=== PATIENT | male | born 1960 | race Asian ===

== ENCOUNTER 2023-06-27 15:31 | Emergency (ER) | payer SELFPAY ==
[2023-06-27] VITALS (20 sets, daily range): BP systolic 145–207; BP diastolic 38–143; PULSE 70–103; RESP 15–36; TEMP 36.5; O2SAT 94–98; BMI 27.4
--- NOTE | 2023-06-27 15:48 | PC.NURSE ---
Used a computer equine dentist for [place] to do the triage; pt has limited Pakistani. He recently quit smoking--within last two months.
--- NOTE | 2023-06-27 15:50 | DI.RAD.S_ITS ---
PROCEDURE: XR CHEST 1V INDICATIONS: Shortness of breath TECHNIQUE: One view of the chest was acquired. COMPARISON: None. FINDINGS: Surgical changes and devices: None. Lungs and pleura: Prominent. No pleural effusions or pneumothorax. Mediastinum: Mediastinal contours appear normal. Heart size is interstitial markings markedly enlarged. Bones and chest wall: No suspicious bony lesions. Overlying soft tissues appear unremarkable. IMPRESSION: Marked cardiomegaly. Mild prominence of the interstitial markings may represent edema, correlate for congestive heart failure. Pericardial effusion is also in the differential. Dictated by: Jim Reinoso M.D. on 06/27/2023 at 16:55 Approved by: Jim Reinoso M.D. on 06/27/2023 at 16:56
--- NOTE | 2023-06-27 16:06 | DI.ECHO.S_ITS ---
[facility]---------+ [facility] +---------+ : : [address] : : : : [id number] : : : : Phone: [phone]---------+ Echocardiogram Report + + :Name: COLLEEN DELA CRUZ Study Date: 06/28/2023 Height: 67 in : :[facility] ReadingLocation: Weight: 150 lb : : Gender: Male BSA: 1.8 m2 : :: 1960 Age: 63 yrs BP: 170/96 mmHg: :Reason For Study: SHORTNESS OF BREATH, CHF : :Ordering Physician: MEMO, : :TORRI Performed By: Jessenia Jain : :Referring: TORRI HAMPTON : + + Interpretation Summary The left ventricle is severely dilated. The ejection fraction is estimated to be 10-15%. There is akinesis of the inferior, lateral and inferoseptal laird. Grade III diastolic dysfunction. The left atrium is severely dilated. The right ventricle is normal in size and function. The right atrium is moderately dilated. There is severe mitral regurgitation. There is mild aortic regurgitation. There is mild to moderate tricuspid regurgitation. The right ventricular systolic pressure is estimated to be at least 43 mmHg based on an estimated right atrial pressure of 15 mm Hg. There is a trivial pericardial effusion noted. Procedure: A two-dimensional transthoracic echocardiogram with color flow and Doppler was performed. The study quality was technically adequate. There is no prior echocardiogram noted for this patient. The patient was in sinus bradycardia with heart rates between 45-68 bpm during the exam. The patient had occasional PVCs during the exam. Left Ventricle: The left ventricle is severely dilated. Left ventiruclar end diastolic volume index to BSA is 83.88ml/m2. A false chord is noted (normal variant). The ejection fraction is estimated to be 10-15%. There is akinesis of the inferior, lateral and inferoseptal laird. Diastolic parameters suggest a restrictive filling pattern consistent with probable significantly elevated filling pressures. Right Ventricle: The right ventricle is normal in size and function. Atria: The left atrium is severely dilated. The right atrium is moderately dilated. There is no Doppler evidence for an interatrial shunt. Mitral Valve: The mitral valve leaflets appear mildly thickened, but open well. There is severe mitral regurgitation. There are multiple regurgitant jets present. Aortic Valve: The aortic valve is trileaflet. The aortic valve is mildly calcified. There is no aortic valve stenosis. There is mild aortic regurgitation. Tricuspid Valve: Tricuspid leaflets are thickened. There is mild to moderate tricuspid regurgitation. The right ventricular systolic pressure is estimated to be at least 43 mmHg based on an estimated right atrial pressure of 15 mm Hg. Pulmonic Valve: The pulmonic valve leaflets are thin and pliable; valve motion is normal. There is trace pulmonic regurgitation. Great Vessels: The aortic root is normal size. The dimensions of the ascending aorta are normal. The IVC is dilated (diameter is greater than 2.1 cm) and it collapses less than 50% with a sniff. This suggests a high right atrial pressure of 15 mm Hg. Pericardium/ Pleura There is a trivial pericardial effusion noted. There is no pleural effusion. MMode/2D Measurements & Calculations LVIDd: 7.0 cm LVOT diam: 2.0 cm LVIDs: 6.5 cm Ao root diam: 3.5 cm FS: 6.6 % asc Aorta Diam: 3.5 cm EPSS: 2.3 cm IVSd: 1.1 cm LVPWd: 0.82 cm LV cleary. diameter/BSA (cm/m^2): 3.9 LV sys. diameter/BSA (cm/m^2): 3.7 LA A2 area: 25.2 cm2 RA long axis: 5.1 cm LA A4 area: 24.5 cm2 RA area: 19.6 cm2 LA length (vol): 6.5 cm RA vol: 63.5 ml LA vol: 81.4 ml RA : 35.5 ml/m2 LA vol index: 45.5 ml/m2 IVC diam: 2.3 cm RVD1 (basal): 3.4 cm RVD2 (mid): 2.3 cm TAPSE: 1.8 cm Doppler Measurements & Calculations Ao V2 max: 96.4 cm/sec LVOT Max Bertram: 57.9 cm/sec Ao V2 mean: 72.3 cm/sec LV V1 max P.3 mmHg Ao max P.7 mmHg LV V1 VTI: 8.6 cm Ao mean P.3 mmHg LUIS(I,D): 2.0 cm2 Ao V2 VTI: 13.5 cm LUIS(V,D): 1.9 cm2 sev ratio: 0.64 LUIS indexed to BSA (cm^2/m^2): 1.1 MV E max bertram: 88.8 cm/sec TR max bertram: 265.4 cm/sec MV A max bertram: 27.9 cm/sec TR max P.2 mmHg MV E/A: 3.2 PA V2 max: 73.2 cm/sec Med Peak E' Bertram: 3.0 cm/sec PA V2 mean: 51.3 cm/sec E/E' med: 29.3 PA mean P.1 mmHg Lat Peak E' Bertram: 5.8 cm/sec PA pr(Accel): 49.9 mmHg E/E' lat: 15.3 E/e' average: 22.3 MV dec time: 0.13 sec MR ERO: 0.13 cm2 MR PISA: 2.6 cm2 SV(LVOT): 27.4 ml MR flow rate: 79.1 cm3/sec MR PISA radius: 0.65 cm Reading Physician:04:26 PM
--- NOTE | 2023-06-27 16:08 | ED_ITS ---
HPI - SOB/Dyspnea <Candida Alas, - Last Filed: 06/28/23 18:35> General Chief Complaint: Shortness of Breath/Dyspnea Stated Complaint: trouble breathing/heart pain Time Seen by Provider: 06/27/23 15:53 Source: patient and other Mode of arrival: Ambulatory Limitations: language barrier (speaks Estonian used interperter) History of Present Illness HPI Narrative: 63-year-old male with no reported medical history presents with complaint of shortness of breath for the past 3 weeks which has been increasing over time. Patient states he started having some shortness of breath that is gotten worsened worse. He has had increasing swelling in his lower extremities that was mild but now much worse in his legs are very tight. He has had swelling in the past for his legs which has come and gone but never been this bad. He denies any chest pain or pressure. No syncope. No fevers or chills. No cold cough or congestion. He does describe orthopnea. He had nausea early in the week but no vomiting. He has had no diarrhea or constipation. Denies urinary symptoms. Patient states he does not take any daily medications, has not seen a physician in many years. He was noted to have a systolic ejection murmur on exam he states no one ever told him he had a murmur. No prior surgeries. No known drug allergies. Former smoker quit approximately 3 months ago would go through a pack cigarettes every 2 or 3 weeks. Occasional alcohol he drinks wine but not regularly. Does not use any recreational or IV drugs. States he has not appointment to establish with primary care next week on 06/30/[address] To. Related Data Previous Rx's Medication Instructions Recorded atorvastatin 80 mg tablet 80 mg PO DAILY #30 tabs 06/28/23 metoprolol succinate 25 mg 25 mg PO DAILY #30 tabs 06/28/23 tablet,extended release 24 hr aspirin 81 mg chewable tablet 81 mg PO DAILY #90 tabs 06/30/23 (Alin Chewable Low Dose Aspirin) furosemide 40 mg tablet 40 mg PO DAILY #60 tabs 06/30/23 lisinopril 20 mg tablet 10 mg (1/2 x 20 mg) PO DAILY #90 06/30/23 tabs metoprolol succinate 50 mg 25 mg (1/2 x 50 mg) PO DAILY #90 06/30/23 tablet,extended release 24 hr tabs Allergies Allergy/AdvReac Type Severity Reaction Status Date / Time No Known Drug Allergies Allergy Verified 06/27/23 15:50 Review of Systems <Candida Alas DO - Last Filed: 06/28/23 18:35> Review of Systems ROS Unobtainable: All systems reviewed & are unremarkable except as noted in HPI and below Patient History <Candida Alas DO - Last Filed: 06/28/23 18:35> Medical History (Updated 06/30/23 @ 09:35 by Dionna To MD) Aortic regurgitation Mitral regurgitation Uninsured HFrEF (heart failure with reduced ejection fraction) Right middle lobe pulmonary nodule Social History Smoking Status: Former smoker Smoking Status: Former smoker tobacco type: cigarettes alcohol intake frequency: holidays/special occasions only Alcohol type: wine Substance Use Type: does not use Exam <Candida Alas DO - Last Filed: 06/28/23 18:35> Narrative Exam Narrative: GENERAL: Alert and oriented x three, alert male in moderate distress. HEENT: Head normocephalic, atraumatic, EOMI, pupils reactive, face symmetric, moist mucous membranes NECK: Supple, full range of motion CARDIOVASCULAR: Tachycardic but Regular rate and rhythm with systolic ejection murmur 3/6 best heard at the left lateral sternum and posterior left thoracic region. No rub. Patient has 2+ edema bilateral lower extremities. RESPIRATORY: Breath sounds equal bilaterally, no wheezes rales or rhonchi. Mild tachypnea. No accessory muscle use. ABDOMEN: Soft, nontender. Normoactive bowel sounds all 4 quadrants. No guarding or rebound, rigidity, no mass : No CVA tenderness EXTREMITIES: Normal range of motion, no clubbing. Neurovascularly intact NEUROLOGICAL: Cranial nerves II through XII grossly intact. Moving all extremities SKIN: Warm, dry, no petechiae, no rashes or lesions. Initial Vital Signs Initial Vital Signs: Vital Signs Temperature 97.7 F 06/27/23 15:34 Pulse Rate 103 H 06/27/23 15:34 Respiratory Rate 22 06/27/23 15:34 Blood Pressure 145/98 H 06/27/23 15:34 Pulse Oximetry 97 06/27/23 15:34 Oxygen Delivery Method Room Air 06/27/23 15:34 <Jemal lFor DO - Last Filed: 07/01/23 18:14> Initial Vital Signs Initial Vital Signs: Vital Signs Temperature 97.7 F 06/27/23 15:34 Pulse Rate 103 H 06/27/23 15:34 Respiratory Rate 22 06/27/23 15:34 Blood Pressure 145/98 H 06/27/23 15:34 Pulse Oximetry 97 06/27/23 15:34 Oxygen Delivery Method Room Air 06/27/23 15:34 <Candida Mason MD - Last Filed: 06/28/23 09:14> Initial Vital Signs Initial Vital Signs: Vital Signs Temperature 97.7 F 06/27/23 15:34 Pulse Rate 103 H 06/27/23 15:34 Respiratory Rate 22 06/27/23 15:34 Blood Pressure 145/98 H 06/27/23 15:34 Pulse Oximetry 97 06/27/23 15:34 Oxygen Delivery Method Room Air 06/27/23 15:34 Course <Candida Alas DO - Last Filed: 06/28/23 18:35> Orders Ordered: Discontinued Medications Furosemide (Furosemide 40 Mg/4 Ml Vial) 40 mg IV NOW ONE Stop: 06/27/23 16:27 Last Admin: 06/27/23 16:35 Dose: 40 mg Documented By: MARLENE Furosemide (Furosemide 40 Mg/4 Ml Vial) 40 mg IV NOW ONE Stop: 06/28/23 00:09 Last Admin: 06/28/23 01:04 Dose: 40 mg Documented By: MCKINLEY Heparin Sodium (Porcine) (Heparin 5,000 Unit/Ml Vial) 4,100 unit 60 unit/kg (4100 unit) IV NOW ONE Stop: 06/27/23 17:00 Last Admin: 06/27/23 17:16 Dose: 4,100 unit Documented By: SPF Heparin Sodium/Dextrose (Heparin Drip) 25,000 unit in 500 mls @ 16.329 mls/hr IV CONT JAZMÍN; Protocol Last Titration: 06/28/23 09:30 Dose: Infused Documented By: MG Co-signed By: RB Titration: 06/28/23 09:30 Dose: 0 units/kg/hr, 0 mls/hr Documented By: MG Co-signed By: RB Titration: 06/28/23 00:30 Dose: 10 units/kg/hr, 13.608 mls/hr Documented By: MCKINLEY Co-signed By: DAKOTA Admin: 06/27/23 17:18 Dose: 12 units/kg/hr, 16.329 mls/hr Documented By: MARIANN Co-signed By: CONOR Nitroglycerin (Nitroglycerin Oint 1 Inch/Gm Oint...G.) 1 inch TOP NOW ONE Stop: 06/27/23 19:26 Last Admin: 06/27/23 20:03 Dose: 1 inch Documented By: MARLENE Vital Signs Vital signs: Vital Signs - 8 hr 06/28/23 01:30 06/28/23 02:00 06/28/23 02:30 Pulse Rate 78 55 L 71 Respiratory Rate 26 H 16 28 H Blood Pressure 197/99 H 171/115 H 175/96 H Pulse Oximetry 96 96 94 Oxygen Delivery Method Room Air Room Air Room Air 06/28/23 02:59 06/28/23 03:00 06/28/23 03:00 Pulse Rate 51 L 63 Respiratory Rate 13 26 H Blood Pressure 176/117 H Pulse Oximetry 96 94 Oxygen Delivery Method 06/28/23 03:01 06/28/23 03:01 06/28/23 03:30 Pulse Rate 59 L 58 L Respiratory Rate 21 26 H Blood Pressure 175/91 H Pulse Oximetry 94 98 Oxygen Delivery Method 06/28/23 03:30 06/28/23 04:00 06/28/23 04:30 Pulse Rate 76 62 Respiratory Rate 20 19 Blood Pressure 179/118 H Pulse Oximetry 91 Oxygen Delivery Method 06/28/23 05:00 06/28/23 05:00 06/28/23 05:00 Pulse Rate 55 L 51 L Respiratory Rate 18 18 Blood Pressure 201/106 H 201/106 H Pulse Oximetry 93 96 Oxygen Delivery Method Room Air 06/28/23 05:30 06/28/23 06:00 06/28/23 06:01 Pulse Rate 58 L 60 57 L Respiratory Rate 12 22 24 Blood Pressure Pulse Oximetry 95 92 97 Oxygen Delivery Method Room Air 06/28/23 06:01 06/28/23 07:00 06/28/23 07:00 Pulse Rate 58 L Respiratory Rate 24 Blood Pressure 170/96 H 168/107 H Pulse Oximetry 96 Oxygen Delivery Method 06/28/23 07:30 06/28/23 07:30 06/28/23 08:00 Pulse Rate 63 Respiratory Rate 21 Blood Pressure 186/99 H 155/99 H Pulse Oximetry 92 Oxygen Delivery Method 06/28/23 08:00 Pulse Rate 49 L Respiratory Rate 15 Blood Pressure Pulse Oximetry 96 Oxygen Delivery Method <Jemal Chacho DO - Last Filed: 07/01/23 18:14> Orders Ordered: Discontinued Medications Furosemide (Furosemide 40 Mg/4 Ml Vial) 40 mg IV NOW ONE Stop: 06/27/23 16:27 Last Admin: 06/27/23 16:35 Dose: 40 mg Documented By: MARLENE Furosemide (Furosemide 40 Mg/4 Ml Vial) 40 mg IV NOW ONE Stop: 06/28/23 00:09 Last Admin: 06/28/23 01:04 Dose: 40 mg Documented By: MCKINLEY Heparin Sodium (Porcine) (Heparin 5,000 Unit/Ml Vial) 4,100 unit 60 unit/kg (4100 unit) IV NOW ONE Stop: 06/27/23 17:00 Last Admin: 06/27/23 17:16 Dose: 4,100 unit Documented By: MARIANN Heparin Sodium/Dextrose (Heparin Drip) 25,000 unit in 500 mls @ 16.329 mls/hr IV CONT JAZMÍN; Protocol Last Titration: 06/28/23 09:30 Dose: Infused Documented By: MG Co-signed By: CONOR Titration: 06/28/23 09:30 Dose: 0 units/kg/hr, 0 mls/hr Documented By: MG Co-signed By: CONOR Titration: 06/28/23 00:30 Dose: 10 units/kg/hr, 13.608 mls/hr Documented By: MCKINLEY Co-signed By: DAKOTA Admin: 06/27/23 17:18 Dose: 12 units/kg/hr, 16.329 mls/hr Documented By: MARIANN Co-signed By: CONOR Nitroglycerin (Nitroglycerin Oint 1 Inch/Gm Oint...G.) 1 inch TOP NOW ONE Stop: 06/27/23 19:26 Last Admin: 06/27/23 20:03 Dose: 1 inch Documented By: MARLENE Vital Signs Vital signs: Vital Signs - 8 hr 06/28/23 01:30 06/28/23 02:00 06/28/23 02:30 Pulse Rate 78 55 L 71 Respiratory Rate 26 H 16 28 H Blood Pressure 197/99 H 171/115 H 175/96 H Pulse Oximetry 96 96 94 Oxygen Delivery Method Room Air Room Air Room Air 06/28/23 02:59 06/28/23 03:00 06/28/23 03:00 Pulse Rate 51 L 63 Respiratory Rate 13 26 H Blood Pressure 176/117 H Pulse Oximetry 96 94 Oxygen Delivery Method 06/28/23 03:01 06/28/23 03:01 06/28/23 03:30 Pulse Rate 59 L 58 L Respiratory Rate 21 26 H Blood Pressure 175/91 H Pulse Oximetry 94 98 Oxygen Delivery Method 06/28/23 03:30 06/28/23 04:00 06/28/23 04:30 Pulse Rate 76 62 Respiratory Rate 20 19 Blood Pressure 179/118 H Pulse Oximetry 91 Oxygen Delivery Method 06/28/23 05:00 06/28/23 05:00 06/28/23 05:00 Pulse Rate 55 L 51 L Respiratory Rate 18 18 Blood Pressure 201/106 H 201/106 H Pulse Oximetry 93 96 Oxygen Delivery Method Room Air 06/28/23 05:30 06/28/23 06:00 06/28/23 06:01 Pulse Rate 58 L 60 57 L Respiratory Rate 12 22 24 Blood Pressure Pulse Oximetry 95 92 97 Oxygen Delivery Method Room Air 06/28/23 06:01 06/28/23 07:00 06/28/23 07:00 Pulse Rate 58 L Respiratory Rate 24 Blood Pressure 170/96 H 168/107 H Pulse Oximetry 96 Oxygen Delivery Method 06/28/23 07:30 06/28/23 07:30 06/28/23 08:00 Pulse Rate 63 Respiratory Rate 21 Blood Pressure 186/99 H 155/99 H Pulse Oximetry 92 Oxygen Delivery Method 06/28/23 08:00 Pulse Rate 49 L Respiratory Rate 15 Blood Pressure Pulse Oximetry 96 Oxygen Delivery Method <Candida Mason MD - Last Filed: 06/28/23 09:14> Orders Ordered: Discontinued Medications Furosemide (Furosemide 40 Mg/4 Ml Vial) 40 mg IV NOW ONE Stop: 06/27/23 16:27 Last Admin: 06/27/23 16:35 Dose: 40 mg Documented By: MARLENE Furosemide (Furosemide 40 Mg/4 Ml Vial) 40 mg IV NOW ONE Stop: 06/28/23 00:09 Last Admin: 06/28/23 01:04 Dose: 40 mg Documented By: MCKINLEY Heparin Sodium (Porcine) (Heparin 5,000 Unit/Ml Vial) 4,100 unit 60 unit/kg (4100 unit) IV NOW ONE Stop: 06/27/23 17:00 Last Admin: 06/27/23 17:16 Dose: 4,100 unit Documented By: MARIANN Heparin Sodium/Dextrose (Heparin Drip) 25,000 unit in 500 mls @ 16.329 mls/hr IV CONT JAZMÍN; Protocol Last Titration: 06/28/23 09:30 Dose: Infused Documented By: MG Co-signed By: CONOR Titration: 06/28/23 09:30 Dose: 0 units/kg/hr, 0 mls/hr Documented By: MG Co-signed By: CONOR Titration: 06/28/23 00:30 Dose: 10 units/kg/hr, 13.608 mls/hr Documented By: MCKINLEY Co-signed By: DAKOTA Admin: 06/27/23 17:18 Dose: 12 units/kg/hr, 16.329 mls/hr Documented By: MARIANN Co-signed By: CONOR Nitroglycerin (Nitroglycerin Oint 1 Inch/Gm Oint...G.) 1 inch TOP NOW ONE Stop: 06/27/23 19:26 Last Admin: 06/27/23 20:03 Dose: 1 inch Documented By: MARLENE Vital Signs Vital signs: Vital Signs - 8 hr 06/28/23 01:30 06/28/23 02:00 06/28/23 02:30 Pulse Rate 78 55 L 71 Respiratory Rate 26 H 16 28 H Blood Pressure 197/99 H 171/115 H 175/96 H Pulse Oximetry 96 96 94 Oxygen Delivery Method Room Air Room Air Room Air 06/28/23 02:59 06/28/23 03:00 06/28/23 03:00 Pulse Rate 51 L 63 Respiratory Rate 13 26 H Blood Pressure 176/117 H Pulse Oximetry 96 94 Oxygen Delivery Method 06/28/23 03:01 06/28/23 03:01 06/28/23 03:30 Pulse Rate 59 L 58 L Respiratory Rate 21 26 H Blood Pressure 175/91 H Pulse Oximetry 94 98 Oxygen Delivery Method 06/28/23 03:30 06/28/23 04:00 06/28/23 04:30 Pulse Rate 76 62 Respiratory Rate 20 19 Blood Pressure 179/118 H Pulse Oximetry 91 Oxygen Delivery Method 06/28/23 05:00 06/28/23 05:00 06/28/23 05:00 Pulse Rate 55 L 51 L Respiratory Rate 18 18 Blood Pressure 201/106 H 201/106 H Pulse Oximetry 93 96 Oxygen Delivery Method Room Air 06/28/23 05:30 06/28/23 06:00 06/28/23 06:01 Pulse Rate 58 L 60 57 L Respiratory Rate 12 22 24 Blood Pressure Pulse Oximetry 95 92 97 Oxygen Delivery Method Room Air 06/28/23 06:01 06/28/23 07:00 06/28/23 07:00 Pulse Rate 58 L Respiratory Rate 24 Blood Pressure 170/96 H 168/107 H Pulse Oximetry 96 Oxygen Delivery Method 06/28/23 07:30 06/28/23 07:30 06/28/23 08:00 Pulse Rate 63 Respiratory Rate 21 Blood Pressure 186/99 H 155/99 H Pulse Oximetry 92 Oxygen Delivery Method 06/28/23 08:00 Pulse Rate 49 L Respiratory Rate 15 Blood Pressure Pulse Oximetry 96 Oxygen Delivery Method MDM - SOB/Dyspnea <Candida Alas, DO - Last Filed: 06/28/23 18:35> Lab Data 06/28/23 05:53 06/28/23 05:53 Labs: Lab Results 06/27/23 06/27/23 06/27/23 Range/Units 16:15 18:25 20:19 WBC 7.9 (4.5-11.0) X10^3/uL RBC 5.08 (4.5-5.9) X10^6/uL Hgb 16.5 (13.5-17.5) g/dL Hct 49.5 (41-53) % MCV 97.6 (80-100) fL MCH 32.6 (26-34) PG MCHC 33.4 (30-36) % RDW 14.6 (11.6-14.8) % Plt Count 220 (150-400) X10^3/uL Neut % (Auto) 73.1 (50-75) % Lymph % (Auto) 19.7 L (25-40) % Adams % (Auto) 6.0 (3-14) % Eos % (Auto) 0.5 L (2-4) % Baso % (Auto) 0.7 (0-2) % Neut # (Auto) 5800 (0846-5912) /uL Lymph # (Auto) 1600 (5541-3904) /uL Adams # (Auto) 500 (0-900) /uL Eos # (Auto) 0 (0-450) /uL Baso # (Auto) 100 (0-100) /uL PT 14.7 H (9.4-12.5) SECONDS INR 1.3 (0.9-1.3) APTT 29 (25.1-36.5) SECONDS D-Dimer 1201 H (<500) ng/ml Sodium 135 L (137-145) mmol/L Potassium 3.7 (3.4-5.1) mmol/L Chloride 105 (98-107) mmol/L Carbon Dioxide 23 (22-32) mmol/L BUN 25 H (9-20) mg/dL Creatinine 0.79 (0.66-1.25) mg/dL Estimated GFR > 60 (>60) mL/min BUN/Creatinine Ratio 31.6 H (6-22) Glucose 153 H (80-110) mg/dL Lactate 1.6 (0.7-2.1) mmol/L Calcium 9.3 (8.4-10.2) mg/dL Total Bilirubin 2.5 H (0.2-1.3) mg/dL AST 62 H (17-59) IU/L ALT 57 H (<50) IU/L Alkaline Phosphatase 89 (38-126) U/L Total Creatine Kinase (55-170) U/L Troponin I 0.245 H* 0.245 H* (0.01-0.034) ng/mL NT-Pro-B Natriuret Pep 2860 H (<125) pg/mL Total Protein 7.0 (6.3-8.2) g/dL Albumin 3.8 (3.5-5.0) g/dL Globulin 3.2 (1.7-4.1) g/dL Albumin/Globulin Ratio 1.2 (1.0-2.8) Urine RBC 30-100/hpf H (0-5/HPF) Urine WBC 0-1/hpf (0-5/HPF) Ur Squamous Epith Cells None seen (0-5/HPF) Urine Bacteria None seen (None) Ur Culture Indicated? Cult not indicated Vol Urine Centrifuged 10ml (spun) 06/27/23 06/27/23 06/27/23 Range/Units 21:40 23:00 23:18 WBC (4.5-11.0) X10^3/uL RBC (4.5-5.9) X10^6/uL Hgb (13.5-17.5) g/dL Hct (41-53) % MCV (80-100) fL MCH (26-34) PG MCHC (30-36) % RDW (11.6-14.8) % Plt Count (150-400) X10^3/uL Neut % (Auto) (50-75) % Lymph % (Auto) (25-40) % Adams % (Auto) (3-14) % Eos % (Auto) (2-4) % Baso % (Auto) (0-2) % Neut # (Auto) (8512-8089) /uL Lymph # (Auto) (2463-7825) /uL Adams # (Auto) (0-900) /uL Eos # (Auto) (0-450) /uL Baso # (Auto) (0-100) /uL PT (9.4-12.5) SECONDS INR (0.9-1.3) APTT 90 H* D (25.1-36.5) SECONDS D-Dimer (<500) ng/ml Sodium (137-145) mmol/L Potassium (3.4-5.1) mmol/L Chloride (98-107) mmol/L Carbon Dioxide (22-32) mmol/L BUN (9-20) mg/dL Creatinine (0.66-1.25) mg/dL Estimated GFR (>60) mL/min BUN/Creatinine Ratio (6-22) Glucose (80-110) mg/dL Lactate (0.7-2.1) mmol/L Calcium (8.4-10.2) mg/dL Total Bilirubin (0.2-1.3) mg/dL AST (17-59) IU/L ALT (<50) IU/L Alkaline Phosphatase (38-126) U/L Total Creatine Kinase 146 (55-170) U/L Troponin I 0.240 H* (0.01-0.034) ng/mL NT-Pro-B Natriuret Pep (<125) pg/mL Total Protein (6.3-8.2) g/dL Albumin (3.5-5.0) g/dL Globulin (1.7-4.1) g/dL Albumin/Globulin Ratio (1.0-2.8) Urine RBC 30-100/hpf H (0-5/HPF) Urine WBC None seen (0-5/HPF) Ur Squamous Epith Cells 0-1 /hpf (0-5/HPF) Urine Bacteria Occasional (0-1) (None) Ur Culture Indicated? Cult not indicated Vol Urine Centrifuged 10ml (spun) 06/28/23 Range/Units 05:53 WBC 5.0 (4.5-11.0) X10^3/uL RBC 5.04 (4.5-5.9) X10^6/uL Hgb 16.2 (13.5-17.5) g/dL Hct 49.1 (41-53) % MCV 97.3 (80-100) fL MCH 32.2 (26-34) PG MCHC 33.1 (30-36) % RDW 14.5 (11.6-14.8) % Plt Count 198 (150-400) X10^3/uL Neut % (Auto) 64.2 (50-75) % Lymph % (Auto) 25.2 (25-40) % Adams % (Auto) 8.5 (3-14) % Eos % (Auto) 0.9 L (2-4) % Baso % (Auto) 1.2 (0-2) % Neut # (Auto) 3200 (1954-9772) /uL Lymph # (Auto) 1300 (6598-6974) /uL Adams # (Auto) 400 (0-900) /uL Eos # (Auto) 0 (0-450) /uL Baso # (Auto) 100 (0-100) /uL PT (9.4-12.5) SECONDS INR (0.9-1.3) APTT 59 H D (25.1-36.5) SECONDS D-Dimer (<500) ng/ml Sodium 137 (137-145) mmol/L Potassium 2.8 L (3.4-5.1) mmol/L Chloride 101 (98-107) mmol/L Carbon Dioxide 29 (22-32) mmol/L BUN 18 (9-20) mg/dL Creatinine 0.73 (0.66-1.25) mg/dL Estimated GFR > 60 (>60) mL/min BUN/Creatinine Ratio 24.7 H (6-22) Glucose 105 (80-110) mg/dL Lactate (0.7-2.1) mmol/L Calcium 9.3 (8.4-10.2) mg/dL Total Bilirubin (0.2-1.3) mg/dL AST (17-59) IU/L ALT (<50) IU/L Alkaline Phosphatase (38-126) U/L Total Creatine Kinase 112 (55-170) U/L Troponin I 0.253 H* (0.01-0.034) ng/mL NT-Pro-B Natriuret Pep 2240 H (<125) pg/mL Total Protein (6.3-8.2) g/dL Albumin (3.5-5.0) g/dL Globulin (1.7-4.1) g/dL Albumin/Globulin Ratio (1.0-2.8) Urine RBC (0-5/HPF) Urine WBC (0-5/HPF) Ur Squamous Epith Cells (0-5/HPF) Urine Bacteria (None) Ur Culture Indicated? Vol Urine Centrifuged Urine Dip Bedside Urine Glucose Negative Bedside Urine Bilirubin - Negative Bedside Urine Ketone - Negative Urine Specific [place] 1.010 Bedside Urine Occult Blood +++ Bedside Urine pH 6.0 Bedside Urine Protein + 30 Bedside Urine Urobilinogen - Negative Bedside Urine Nitrite - Negative Bedside Urine Leukocytes - Negative Esterase ECG Data Attestation: I personally reviewed and interpreted this ECG as follows: Prior ECG tracings: not available for review Interpretation: Sinus tachycardia left atrial enlargement, left ventricular hypertrophy, patient has definite ST depression in lateral leads, Q-wave with bundle-branch block 2 3 and AVF. No prior for comparison. MDM Narrative Medical decision making narrative: 63-year-old male with no complaints of chest pain but has had shortness of breath with increasing swelling of his lower extremities for the past 3 weeks. Has what appears to be probably left bundle with ST depression on his EKG, no priors for comparison. Patient appears fluid overloaded he has a systolic ejection murmur heard best in the left lateral border and posteriorly and has occasional episodes of hypoxia down to 88 %. Plan for labs Chest x-ray shows cardiomegaly. Possible early CHF. Patient was given Lasix 40 mg IV placed on 2 L nasal cannula Labs show normal white count, hemoglobin and crit was platelets of 220. INR is 1.[address] angio was ordered. Sodium is 135 with a BUN 25 and electrolytes are appropriate with potassium of 3.2, creatinine normal at 0.79 lactate 1.6. Glucose is 153. Bilirubin is 2 point with a AST of 62 and ALT of 57. Troponin is 0.245. BNP is 2860. Suspect possible valvular dysfunction causing congestive heart failure and elevated troponin patient does not have any chest pain or pressure. EKG does have ST changes. Patient is quite hypertensive but would like to have CT angio results back before starting any medications for blood pressure. Patient started on heparin drip. Troponin is being repeated. Patient CT angio pending ECHO ordered but unavailable today. Patient signed out to Dr. Flor patient will likely necessitate transfer. Dr Flor: Received turned over. Review patient's history and physical exam. Performed my own independent exam. Talked with the patient. He has no chest pain. His troponins have remained stable over multiple hours. He remains on a heparin drip. Has diuresed. Blood pressure is improved with diuresis and nitroglycerin. Based on his presentation today I suspect that his symptoms are CHF related. He seems to think that his symptoms really started 3 weeks ago. I did discuss the case with Dr. Hogan on-call for cardiology who recommends patient be transferred to a facility that has cardiology capability because of the high likelihood of requiring intervention. Echocardiogram has been ordered however we are unable to do this overnight. Care turned over to day provider to follow-up and disposition. Care of patient is signed over to me by Dr. Flor at 0700 -no events reported overnight. Hemodynamically stable, he was provided a heart healthy breakfast tray. Patient at 8:30 a.m. informed the nurse that he wished to speak with me. Using [place]ian credit department manager service the patient stated that he did not want to be transferred due to financial concerns and wanted to leave the hospital and go home. I explained to the patient that finances can be assisted with as there are numerous financial assistance in erik programs at various hospitals to help with patients who do not have insurance. I explained that patient very very likely has congestive heart failure and heart disease and recommended transfer for cardiology consult and possible intervention. Patient stated that he understood the risks of leaving including worsening heart failure and heart attack and even , but he continued to state financial concerns as a reason he did not want to stay in the hospital and states that he would like to leave against medical advice. He states that he has a primary care appointment in 2 days and we will talk to his doctor then about further care. While patient is pending his primary care appointment he will be started on low-dose metoprolol, a short course of Lasix, a high-intensity statin, and daily baby aspirin. Using translation service patient was counseled on the extreme importance of following up with his primary doctor and heart doctor to avoid worsening his condition. Patient expressed understanding, he is alert, oriented, he understands the risks of leaving against medical advice. <Jemal Flor, DO - Last Filed: 07/01/23 18:14> Lab Data Attestation: I reviewed the patient's lab results. Labs: Lab Results 06/27/23 06/27/23 06/27/23 Range/Units 16:15 18:25 20:19 WBC 7.9 (4.5-11.0) X10^3/uL RBC 5.08 (4.5-5.9) X10^6/uL Hgb 16.5 (13.5-17.5) g/dL Hct 49.5 (41-53) % MCV 97.6 (80-100) fL MCH 32.6 (26-34) PG MCHC 33.4 (30-36) % RDW 14.6 (11.6-14.8) % Plt Count 220 (150-400) X10^3/uL Neut % (Auto) 73.1 (50-75) % Lymph % (Auto) 19.7 L (25-40) % Adams % (Auto) 6.0 (3-14) % Eos % (Auto) 0.5 L (2-4) % Baso % (Auto) 0.7 (0-2) % Neut # (Auto) 5800 (8065-2596) /uL Lymph # (Auto) 1600 (5913-1804) /uL Adams # (Auto) 500 (0-900) /uL Eos # (Auto) 0 (0-450) /uL Baso # (Auto) 100 (0-100) /uL PT 14.7 H (9.4-12.5) SECONDS INR 1.3 (0.9-1.3) APTT 29 (25.1-36.5) SECONDS D-Dimer 1201 H (<500) ng/ml Sodium 135 L (137-145) mmol/L Potassium 3.7 (3.4-5.1) mmol/L Chloride 105 (98-107) mmol/L Carbon Dioxide 23 (22-32) mmol/L BUN 25 H (9-20) mg/dL Creatinine 0.79 (0.66-1.25) mg/dL Estimated GFR > 60 (>60) mL/min BUN/Creatinine Ratio 31.6 H (6-22) Glucose 153 H (80-110) mg/dL Lactate 1.6 (0.7-2.1) mmol/L Calcium 9.3 (8.4-10.2) mg/dL Total Bilirubin 2.5 H (0.2-1.3) mg/dL AST 62 H (17-59) IU/L ALT 57 H (<50) IU/L Alkaline Phosphatase 89 (38-126) U/L Total Creatine Kinase (55-170) U/L Troponin I 0.245 H* 0.245 H* (0.01-0.034) ng/mL NT-Pro-B Natriuret Pep 2860 H (<125) pg/mL Total Protein 7.0 (6.3-8.2) g/dL Albumin 3.8 (3.5-5.0) g/dL Globulin 3.2 (1.7-4.1) g/dL Albumin/Globulin Ratio 1.2 (1.0-2.8) Urine RBC 30-100/hpf H (0-5/HPF) Urine WBC 0-1/hpf (0-5/HPF) Ur Squamous Epith Cells None seen (0-5/HPF) Urine Bacteria None seen (None) Ur Culture Indicated? Cult not indicated Vol Urine Centrifuged 10ml (spun) 06/27/23 06/27/23 06/27/23 Range/Units 21:40 23:00 23:18 WBC (4.5-11.0) X10^3/uL RBC (4.5-5.9) X10^6/uL Hgb (13.5-17.5) g/dL Hct (41-53) % MCV (80-100) fL MCH (26-34) PG MCHC (30-36) % RDW (11.6-14.8) % Plt Count (150-400) X10^3/uL Neut % (Auto) (50-75) % Lymph % (Auto) (25-40) % Adams % (Auto) (3-14) % Eos % (Auto) (2-4) % Baso % (Auto) (0-2) % Neut # (Auto) (2149-5450) /uL Lymph # (Auto) (3328-3134) /uL Adams # (Auto) (0-900) /uL Eos # (Auto) (0-450) /uL Baso # (Auto) (0-100) /uL PT (9.4-12.5) SECONDS INR (0.9-1.3) APTT 90 H* D (25.1-36.5) SECONDS D-Dimer (<500) ng/ml Sodium (137-145) mmol/L Potassium (3.4-5.1) mmol/L Chloride (98-107) mmol/L Carbon Dioxide (22-32) mmol/L BUN (9-20) mg/dL Creatinine (0.66-1.25) mg/dL Estimated GFR (>60) mL/min BUN/Creatinine Ratio (6-22) Glucose (80-110) mg/dL Lactate (0.7-2.1) mmol/L Calcium (8.4-10.2) mg/dL Total Bilirubin (0.2-1.3) mg/dL AST (17-59) IU/L ALT (<50) IU/L Alkaline Phosphatase (38-126) U/L Total Creatine Kinase 146 (55-170) U/L Troponin I 0.240 H* (0.01-0.034) ng/mL NT-Pro-B Natriuret Pep (<125) pg/mL Total Protein (6.3-8.2) g/dL Albumin (3.5-5.0) g/dL Globulin (1.7-4.1) g/dL Albumin/Globulin Ratio (1.0-2.8) Urine RBC 30-100/hpf H (0-5/HPF) Urine WBC None seen (0-5/HPF) Ur Squamous Epith Cells 0-1 /hpf (0-5/HPF) Urine Bacteria Occasional (0-1) (None) Ur Culture Indicated? Cult not indicated Vol Urine Centrifuged 10ml (spun) 06/28/23 Range/Units 05:53 WBC 5.0 (4.5-11.0) X10^3/uL RBC 5.04 (4.5-5.9) X10^6/uL Hgb 16.2 (13.5-17.5) g/dL Hct 49.1 (41-53) % MCV 97.3 (80-100) fL MCH 32.2 (26-34) PG MCHC 33.1 (30-36) % RDW 14.5 (11.6-14.8) % Plt Count 198 (150-400) X10^3/uL Neut % (Auto) 64.2 (50-75) % Lymph % (Auto) 25.2 (25-40) % Adams % (Auto) 8.5 (3-14) % Eos % (Auto) 0.9 L (2-4) % Baso % (Auto) 1.2 (0-2) % Neut # (Auto) 3200 (7143-8525) /uL Lymph # (Auto) 1300 (9043-7447) /uL Adams # (Auto) 400 (0-900) /uL Eos # (Auto) 0 (0-450) /uL Baso # (Auto) 100 (0-100) /uL PT (9.4-12.5) SECONDS INR (0.9-1.3) APTT 59 H D (25.1-36.5) SECONDS D-Dimer (<500) ng/ml Sodium 137 (137-145) mmol/L Potassium 2.8 L (3.4-5.1) mmol/L Chloride 101 (98-107) mmol/L Carbon Dioxide 29 (22-32) mmol/L BUN 18 (9-20) mg/dL Creatinine 0.73 (0.66-1.25) mg/dL Estimated GFR > 60 (>60) mL/min BUN/Creatinine Ratio 24.7 H (6-22) Glucose 105 (80-110) mg/dL Lactate (0.7-2.1) mmol/L Calcium 9.3 (8.4-10.2) mg/dL Total Bilirubin (0.2-1.3) mg/dL AST (17-59) IU/L ALT (<50) IU/L Alkaline Phosphatase (38-126) U/L Total Creatine Kinase 112 (55-170) U/L Troponin I 0.253 H* (0.01-0.034) ng/mL NT-Pro-B Natriuret Pep 2240 H (<125) pg/mL Total Protein (6.3-8.2) g/dL Albumin (3.5-5.0) g/dL Globulin (1.7-4.1) g/dL Albumin/Globulin Ratio (1.0-2.8) Urine RBC (0-5/HPF) Urine WBC (0-5/HPF) Ur Squamous Epith Cells (0-5/HPF) Urine Bacteria (None) Ur Culture Indicated? Vol Urine Centrifuged Urine Dip Bedside Urine Glucose Negative Bedside Urine Bilirubin - Negative Bedside Urine Ketone - Negative Urine Specific [place] 1.010 Bedside Urine Occult Blood +++ Bedside Urine pH 6.0 Bedside Urine Protein + 30 Bedside Urine Urobilinogen - Negative Bedside Urine Nitrite - Negative Bedside Urine Leukocytes - Negative Esterase MDM Narrative Medical decision making narrative: 63-year-old male with no complaints of chest pain but has had shortness of breath with increasing swelling of his lower extremities for the past 3 weeks. Has what appears to be probably left bundle with ST depression on his EKG, no priors for comparison. Patient appears fluid overloaded he has a systolic ejection murmur heard best in the left lateral border and posteriorly and has occasional episodes of hypoxia down to 88 %. Plan for labs Chest x-ray shows cardiomegaly. Possible early CHF. Patient was given Lasix 40 mg IV placed on 2 L nasal cannula Labs show normal white count, hemoglobin and crit was platelets of 220. INR is 1.[address] angio was ordered. Sodium is 135 with a BUN 25 and electrolytes are appropriate with potassium of 3.2, creatinine normal at 0.79 lactate 1.6. Glucose is 153. Bilirubin is 2 point with a AST of 62 and ALT of 57. Troponin is 0.245. BNP is 2860. Suspect possible valvular dysfunction causing congestive heart failure and elevated troponin patient does not have any chest pain or pressure. EKG does have ST changes. Patient is quite hypertensive but would like to have CT angio results back before starting any medications for blood pressure. Patient started on heparin drip. Troponin is being repeated. Patient CT angio pending Patient signed out to Dr. Flor patient will likely necessitate transfer. Dr Flor: Received turned over. Review patient's history and physical exam. Performed my own independent exam. Talked with the patient. He has no chest pain. His troponins have remained stable over multiple hours. He remains on a heparin drip. Has diuresed. Blood pressure is improved with diuresis and nitroglycerin. Based on his presentation today I suspect that his symptoms are CHF related. He seems to think that his symptoms really started 3 weeks ago. I did discuss the case with Dr. Hogan on-call for cardiology who recommends patient be transferred to a facility that has cardiology capability because of the high likelihood of requiring intervention. Echocardiogram has been ordered however we are unable to do this overnight. Care turned over to day provider to follow-up and disposition. <Candida Mason MD - Last Filed: 06/28/23 09:14> Lab Data Labs: Lab Results 06/27/23 06/27/23 06/27/23 Range/Units 16:15 18:25 20:19 WBC 7.9 (4.5-11.0) X10^3/uL RBC 5.08 (4.5-5.9) X10^6/uL Hgb 16.5 (13.5-17.5) g/dL Hct 49.5 (41-53) % MCV 97.6 (80-100) fL MCH 32.6 (26-34) PG MCHC 33.4 (30-36) % RDW 14.6 (11.6-14.8) % Plt Count 220 (150-400) X10^3/uL Neut % (Auto) 73.1 (50-75) % Lymph % (Auto) 19.7 L (25-40) % Adams % (Auto) 6.0 (3-14) % Eos % (Auto) 0.5 L (2-4) % Baso % (Auto) 0.7 (0-2) % Neut # (Auto) 5800 (9951-2925) /uL Lymph # (Auto) 1600 (3229-7485) /uL Adams # (Auto) 500 (0-900) /uL Eos # (Auto) 0 (0-450) /uL Baso # (Auto) 100 (0-100) /uL PT 14.7 H (9.4-12.5) SECONDS INR 1.3 (0.9-1.3) APTT 29 (25.1-36.5) SECONDS D-Dimer 1201 H (<500) ng/ml Sodium 135 L (137-145) mmol/L Potassium 3.7 (3.4-5.1) mmol/L Chloride 105 (98-107) mmol/L Carbon Dioxide 23 (22-32) mmol/L BUN 25 H (9-20) mg/dL Creatinine 0.79 (0.66-1.25) mg/dL Estimated GFR > 60 (>60) mL/min BUN/Creatinine Ratio 31.6 H (6-22) Glucose 153 H (80-110) mg/dL Lactate 1.6 (0.7-2.1) mmol/L Calcium 9.3 (8.4-10.2) mg/dL Total Bilirubin 2.5 H (0.2-1.3) mg/dL AST 62 H (17-59) IU/L ALT 57 H (<50) IU/L Alkaline Phosphatase 89 (38-126) U/L Total Creatine Kinase (55-170) U/L Troponin I 0.245 H* 0.245 H* (0.01-0.034) ng/mL NT-Pro-B Natriuret Pep 2860 H (<125) pg/mL Total Protein 7.0 (6.3-8.2) g/dL Albumin 3.8 (3.5-5.0) g/dL Globulin 3.2 (1.7-4.1) g/dL Albumin/Globulin Ratio 1.2 (1.0-2.8) Urine RBC 30-100/hpf H (0-5/HPF) Urine WBC 0-1/hpf (0-5/HPF) Ur Squamous Epith Cells None seen (0-5/HPF) Urine Bacteria None seen (None) Ur Culture Indicated? Cult not indicated Vol Urine Centrifuged 10ml (spun) 06/27/23 06/27/23 06/27/23 Range/Units 21:40 23:00 23:18 WBC (4.5-11.0) X10^3/uL RBC (4.5-5.9) X10^6/uL Hgb (13.5-17.5) g/dL Hct (41-53) % MCV (80-100) fL MCH (26-34) PG MCHC (30-36) % RDW (11.6-14.8) % Plt Count (150-400) X10^3/uL Neut % (Auto) (50-75) % Lymph % (Auto) (25-40) % Adams % (Auto) (3-14) % Eos % (Auto) (2-4) % Baso % (Auto) (0-2) % Neut # (Auto) (0468-4253) /uL Lymph # (Auto) (7754-3477) /uL Adams # (Auto) (0-900) /uL Eos # (Auto) (0-450) /uL Baso # (Auto) (0-100) /uL PT (9.4-12.5) SECONDS INR (0.9-1.3) APTT 90 H* D (25.1-36.5) SECONDS D-Dimer (<500) ng/ml Sodium (137-145) mmol/L Potassium (3.4-5.1) mmol/L Chloride (98-107) mmol/L Carbon Dioxide (22-32) mmol/L BUN (9-20) mg/dL Creatinine (0.66-1.25) mg/dL Estimated GFR (>60) mL/min BUN/Creatinine Ratio (6-22) Glucose (80-110) mg/dL Lactate (0.7-2.1) mmol/L Calcium (8.4-10.2) mg/dL Total Bilirubin (0.2-1.3) mg/dL AST (17-59) IU/L ALT (<50) IU/L Alkaline Phosphatase (38-126) U/L Total Creatine Kinase 146 (55-170) U/L Troponin I 0.240 H* (0.01-0.034) ng/mL NT-Pro-B Natriuret Pep (<125) pg/mL Total Protein (6.3-8.2) g/dL Albumin (3.5-5.0) g/dL Globulin (1.7-4.1) g/dL Albumin/Globulin Ratio (1.0-2.8) Urine RBC 30-100/hpf H (0-5/HPF) Urine WBC None seen (0-5/HPF) Ur Squamous Epith Cells 0-1 /hpf (0-5/HPF) Urine Bacteria Occasional (0-1) (None) Ur Culture Indicated? Cult not indicated Vol Urine Centrifuged 10ml (spun) 06/28/23 Range/Units 05:53 WBC 5.0 (4.5-11.0) X10^3/uL RBC 5.04 (4.5-5.9) X10^6/uL Hgb 16.2 (13.5-17.5) g/dL Hct 49.1 (41-53) % MCV 97.3 (80-100) fL MCH 32.2 (26-34) PG MCHC 33.1 (30-36) % RDW 14.5 (11.6-14.8) % Plt Count 198 (150-400) X10^3/uL Neut % (Auto) 64.2 (50-75) % Lymph % (Auto) 25.2 (25-40) % Adams % (Auto) 8.5 (3-14) % Eos % (Auto) 0.9 L (2-4) % Baso % (Auto) 1.2 (0-2) % Neut # (Auto) 3200 (4305-6947) /uL Lymph # (Auto) 1300 (9329-2423) /uL Adams # (Auto) 400 (0-900) /uL Eos # (Auto) 0 (0-450) /uL Baso # (Auto) 100 (0-100) /uL PT (9.4-12.5) SECONDS INR (0.9-1.3) APTT 59 H D (25.1-36.5) SECONDS D-Dimer (<500) ng/ml Sodium 137 (137-145) mmol/L Potassium 2.8 L (3.4-5.1) mmol/L Chloride 101 (98-107) mmol/L Carbon Dioxide 29 (22-32) mmol/L BUN 18 (9-20) mg/dL Creatinine 0.73 (0.66-1.25) mg/dL Estimated GFR > 60 (>60) mL/min BUN/Creatinine Ratio 24.7 H (6-22) Glucose 105 (80-110) mg/dL Lactate (0.7-2.1) mmol/L Calcium 9.3 (8.4-10.2) mg/dL Total Bilirubin (0.2-1.3) mg/dL AST (17-59) IU/L ALT (<50) IU/L Alkaline Phosphatase (38-126) U/L Total Creatine Kinase 112 (55-170) U/L Troponin I 0.253 H* (0.01-0.034) ng/mL NT-Pro-B Natriuret Pep 2240 H (<125) pg/mL Total Protein (6.3-8.2) g/dL Albumin (3.5-5.0) g/dL Globulin (1.7-4.1) g/dL Albumin/Globulin Ratio (1.0-2.8) Urine RBC (0-5/HPF) Urine WBC (0-5/HPF) Ur Squamous Epith Cells (0-5/HPF) Urine Bacteria (None) Ur Culture Indicated? Vol Urine Centrifuged Urine Dip Bedside Urine Glucose Negative Bedside Urine Bilirubin - Negative Bedside Urine Ketone - Negative Urine Specific [place] 1.010 Bedside Urine Occult Blood +++ Bedside Urine pH 6.0 Bedside Urine Protein + 30 Bedside Urine Urobilinogen - Negative Bedside Urine Nitrite - Negative Bedside Urine Leukocytes - Negative Esterase MDM Narrative Medical decision making narrative: 63-year-old male with no complaints of chest pain but has had shortness of breath with increasing swelling of his lower extremities for the past 3 weeks. Has what appears to be probably left bundle with ST depression on his EKG, no priors for comparison. Patient appears fluid overloaded he has a systolic ejection murmur heard best in the left lateral border and posteriorly and has occasional episodes of hypoxia down to 88 %. Plan for labs Chest x-ray shows cardiomegaly. Possible early CHF. Patient was given Lasix 40 mg IV placed on 2 L nasal cannula Labs show normal white count, hemoglobin and crit was platelets of 220. INR is 1.[address] angio was ordered. Sodium is 135 with a BUN 25 and electrolytes are appropriate with potassium of 3.2, creatinine normal at 0.79 lactate 1.6. Glucose is 153. Bilirubin is 2 point with a AST of 62 and ALT of 57. Troponin is 0.245. BNP is 2860. Suspect possible valvular dysfunction causing congestive heart failure and elevated troponin patient does not have any chest pain or pressure. EKG does have ST changes. Patient is quite hypertensive but would like to have CT angio results back before starting any medications for blood pressure. Patient started on heparin drip. Troponin is being repeated. Patient CT angio pending Patient signed out to Dr. Flor patient will likely necessitate transfer. Dr Flor: Received turned over. Review patient's history and physical exam. Performed my own independent exam. Talked with the patient. He has no chest pain. His troponins have remained stable over multiple hours. He remains on a heparin drip. Has diuresed. Blood pressure is improved with diuresis and nitroglycerin. Based on his presentation today I suspect that his symptoms are CHF related. He seems to think that his symptoms really started 3 weeks ago. I did discuss the case with Dr. Hogan on-call for cardiology who recommends patient be transferred to a facility that has cardiology capability because of the high likelihood of requiring intervention. Echocardiogram has been ordered however we are unable to do this overnight. Care turned over to day provider to follow-up and disposition. Care of patient is signed over to me by Dr. Flor at 0700 -no events reported overnight. Hemodynamically stable, he was provided a heart healthy breakfast tray. Patient at 8:30 a.m. informed the nurse that he wished to speak with me. Using [place] credit department manager service the patient stated that he did not want to be transferred due to financial concerns and wanted to leave the hospital and go home. I explained to the patient that finances can be assisted with as there are numerous financial assistance in erik programs at various hospitals to help with patients who do not have insurance. I explained that patient very very likely has congestive heart failure and heart disease and recommended transfer for cardiology consult and possible intervention. Patient stated that he understood the risks of leaving including worsening heart failure and heart attack and even , but he continued to state financial concerns as a reason he did not want to stay in the hospital and states that he would like to leave against medical advice. He states that he has a primary care appointment in 2 days and we will talk to his doctor then about further care. While patient is pending his primary care appointment he will be started on low-dose metoprolol, a short course of Lasix, a high-intensity statin, and daily baby aspirin. Using translation service patient was counseled on the extreme importance of following up with his primary doctor and heart doctor to avoid worsening his condition. Patient expressed understanding, he is alert, oriented, he understands the risks of leaving against medical advice. Discharge Plan Departure Patient Disposition: Left Against Medical Advice Clinical Impression: Congestive heart disease, Pulmonary nodule, Left against medical advice Coronary artery disease Qualifiers: Coronary Disease-Associated Artery/Lesion type: [place] artery [place] vs. transplanted heart: [place] heart Associated angina: with unspecified form of angina Qualified Code(s): I25.119 - Atherosclerotic heart disease of [place] coronary artery with unspecified angina pectoris Instructions: DI for Heart Failure Activity Restrictions/Additional Instructions: It is extremely important that you take all of your medications. Please come back if you do not feel better. Please see a heart doctor (Dr. Pope) Prescriptions: New atorvastatin 80 mg tablet 80 mg PO DAILY Qty: 30 0RF metoprolol succinate 25 mg tablet extended release 24 hr 25 mg PO DAILY Qty: 30 0RF No Action furosemide 40 mg tablet 40 mg PO DAILY Qty: 60 0RF Rx Instructions: Take as needed for swelling/shortness of breath. Take 1 tab daily for 5 days aspirin [Alin Chewable Aspirin] 81 mg tablet,chewable 81 mg PO DAILY Qty: 90 0RF metoprolol succinate 50 mg tablet extended release 24 hr 25 mg PO DAILY Qty: 90 0RF lisinopril 20 mg tablet 10 mg PO DAILY Qty: 90 0RF Referrals: Emmanuelle Pope DO [Physician] - Stand Alone Forms: Patient Portal/API, Against Medical Advice
--- NOTE | 2023-06-27 16:10 | PC.NURSE ---
Pt's friend Troy is going home for now and states to call him again when BJ (patient) needs a ride. Pt sitting up in bed.
[2023-06-27 16:22] LABS: Add Manual Diff / Slide Review NO; Basophils Absolute Auto 100 /uL (0-100); Basophils Percent Auto 0.7 % (0-2); Eosinophils Absolute Auto 0 /uL (0-450); Eosinophils Percent Auto 0.5 % (2-4); Hematocrit 49.5 % (41-53); Hemoglobin 16.5 g/dL (13.5-17.5); Lymphocytes Absolute Auto 1600 /uL (1100-4500); Lymphocytes Percent Auto 19.7 % (25-40); Mean Corpuscular HGB Conc 33.4 % (30-36); Mean Corpuscular Hemoglobin 32.6 PG (26-34); Mean Corpuscular Volume 97.6 fL (80-100); Monocytes Absolute Auto 500 /uL (0-900); Neutrophils Absolute Auto 5800 /uL (1500-7000); Neutrophils Percent Auto 73.1 % (50-75); Platelet Count 220 X10^3/uL (150-400); Red Blood Cell Count 5.08 X10^6/uL (4.5-5.9); Red Cell Distribution Width 14.6 % (11.6-14.8); White Blood Cell Count 7.9 X10^3/uL (4.5-11.0)
[2023-06-27 16:33] LABS: D Dimer 1201 ng/ml (<500)
[2023-06-27 16:35] LABS: Lactate (Lactic Acid) 1.6 mmol/L (0.7-2.1)
[2023-06-27] MEDS: FUROSEMIDE 40 MG/4 ML VIAL IV (16:35)
[2023-06-27 16:37] LABS: Alanine Aminotransferase 57 IU/L (<50); Albumin 3.8 g/dL (3.5-5.0); Albumin Globulin Ratio 1.2 (1.0-2.8); Alkaline Phosphatase 89 U/L (38-126); Aspartate Aminotransferase 62 IU/L (17-59); BUN Creatinine Ratio 31.6 (6-22); Bilirubin Total 2.5 mg/dL (0.2-1.3); Blood Urea Nitrogen 25 mg/dL (9-20); Calcium 9.3 mg/dL (8.4-10.2); Carbon Dioxide 23 mmol/L (22-32); Chloride 105 mmol/L (98-107); Estimated Glomerular Filt Rate > 60 mL/min (>60); Globulin 3.2 g/dL (1.7-4.1); Glucose 153 mg/dL (80-110); HEMOLYSIS 48 (0-50); Potassium 3.7 mmol/L (3.4-5.1); Sodium 135 mmol/L (137-145)
[2023-06-27 16:39] LABS: INR 1.3 (0.9-1.3); Prothrombin Time 14.7 SECONDS (9.4-12.5)
[2023-06-27 16:48] LABS: NT-proBNP (BNP-Adult 18+) 2860 pg/mL (<125)
[2023-06-27 16:49] LABS: PTT Partial Thromboplastin Tim 29 SECONDS (25.1-36.5)
--- NOTE | 2023-06-27 16:50 | PC.NURSE ---
Pt reports having SOB for the past 3 weeks and increased shortness of breath the past 7 days. He denies chest pain, dizziness or lightheaded. Pt reports feeling like his mouth is dry and having nausea 3 days ago with no emesis. Pt denies nausea currently. He has been taking advil PM to help get to sleep at night, having difficulty laying flat.
[2023-06-27 16:58] LABS: Troponin I 0.245 ng/mL (0.01-0.034)
--- NOTE | 2023-06-27 16:59 | DI.CT.S_ITS ---
PROCEDURE: CT ANGIO CHEST PE PROTOCOL INDICATIONS: shortness of breath, heart failure, elevated dimer. TECHNIQUE: After the administration of intravenous contrast, 2 mm thick sections acquired from the pulmonary apices to the posterior costophrenic angles. 3-dimensional maximum intensity projection (MIP) coronal and sagittal reformats were then acquired through the thorax. For radiation dose reduction, the following was used: automated exposure control, adjustment of mA and/or kV according to patient size. COMPARISON: None. FINDINGS: Image quality: Diagnostic. Pulmonary arteries: Pulmonary arteries are normal in size, and demonstrate no intraluminal filling defects to suggest central pulmonary embolism. Lower Neck: No enlarged lymph nodes. Thyroid: No thyroid nodules which require sonographic follow up, per consensus guidelines. Axillae: No enlarged lymph nodes. Chest Wall: Unremarkable. Bones: Unremarkable. Lungs and Pleura: No pneumothorax or pleural effusions. 8-9 mm solid nodule in the medial right middle lobe (series 5, image 210). Mild bronchial thickening and smooth interstitial thickening. Trace left effusion and small right effusion. Heart: Heart size is enlarged. No pericardial effusion. Marked coronary calcifications for age. Thoracic Vessels: No aortic aneurysm. Mediastinum and Ernestina: No enlarged lymph nodes. Esophagus: No wall thickening. No hiatal hernia. Upper Abdomen: Hepatic cysts. IMPRESSION: No pulmonary embolus. Moderate pulmonary edema, with small right pleural effusion and trace left pleural effusion. Marked coronary artery calcifications for age. Consider cardiology referral. 8-9 mm solid nodule in the medial right middle lobe. Recommend three-month follow-up in 3 months. Dictated by: Tejas Mendoza M.D. on 06/27/2023 at 18:10 Approved by: Tejas Mendoza M.D. on 06/27/2023 at 18:12
--- NOTE | 2023-06-27 17:15 | PC.NURSE ---
Macedonian cad intern was paged and is at bedside. Pt was educated about the use of medications (see MAR) due to lab values obtained today. Pt expressed understanding. Pt was asked if we could proceed with administering Heparin medication and patient says yes. Pt denies having any further concerns while speaking to the cad intern.
[2023-06-27] MEDS: HEPARIN 5,000 UNIT/ML VIAL 4100 UNIT IV (17:16)
[2023-06-27] MEDS: HEPARIN DRIP 25,000 UNIT/500 ML IV.SOLN 16.329 UNIT IV (17:18)
[2023-06-27 18:57] LABS: Troponin I 0.245 ng/mL (0.01-0.034)
[2023-06-27] MEDS: NITROGLYCERIN OINT 1 INCH/GM OINT...G. TOP (20:03)
--- NOTE | 2023-06-27 20:34 | PC.NURSE ---
pt is on the waitlist at [facility] and [facility] for a tele bed
[2023-06-27 20:37] LABS: Bacteria Urine None Seen; Culture Indicated Urine Cult Not Indicated; RBC Urine 30-100/HPF (0-5/HPF); Squamous Epithelial Cell Urine None Seen (0-5/HPF); Urine Volume 10mL (spun); WBC Urine 0-1/HPF (0-5/HPF)
[2023-06-27 22:09] LABS: Creatine Kinase 146 U/L (55-170)
[2023-06-27 23:49] LABS: PTT Partial Thromboplastin Tim 90 SECONDS (25.1-36.5)
[2023-06-28] VITALS (21 sets, daily range): BP systolic 155–201; BP diastolic 91–120; PULSE 49–78; RESP 12–28; O2SAT 91–98
[2023-06-28 00:30] LABS: Urine Volume 10mL (spun)
[2023-06-28 00:43] LABS: Bacteria Urine Occasional (0-1); Culture Indicated Urine Cult Not Indicated; RBC Urine 30-100/HPF (0-5/HPF); Squamous Epithelial Cell Urine 0-1 /HPF (0-5/HPF); WBC Urine None Seen (0-5/HPF)
[2023-06-28] MEDS: FUROSEMIDE 40 MG/4 ML VIAL IV (01:04)
[2023-06-28 06:03] LABS: Add Manual Diff / Slide Review NO; Basophils Absolute Auto 100 /uL (0-100); Basophils Percent Auto 1.2 % (0-2); Eosinophils Absolute Auto 0 /uL (0-450); Eosinophils Percent Auto 0.9 % (2-4); Hematocrit 49.1 % (41-53); Hemoglobin 16.2 g/dL (13.5-17.5); Lymphocytes Absolute Auto 1300 /uL (1100-4500); Lymphocytes Percent Auto 25.2 % (25-40); Mean Corpuscular HGB Conc 33.1 % (30-36); Mean Corpuscular Hemoglobin 32.2 PG (26-34); Mean Corpuscular Volume 97.3 fL (80-100); Monocytes Absolute Auto 400 /uL (0-900); Monocytes Percent Auto 8.5 % (3-14); Neutrophils Absolute Auto 3200 /uL (1500-7000); Neutrophils Percent Auto 64.2 % (50-75); Platelet Count 198 X10^3/uL (150-400); Red Blood Cell Count 5.04 X10^6/uL (4.5-5.9); Red Cell Distribution Width 14.5 % (11.6-14.8)
[2023-06-28 06:13] LABS: PTT Partial Thromboplastin Tim 59 SECONDS (25.1-36.5)
[2023-06-28 06:15] LABS: BUN Creatinine Ratio 24.7 (6-22); Blood Urea Nitrogen 18 mg/dL (9-20); Calcium 9.3 mg/dL (8.4-10.2); Carbon Dioxide 29 mmol/L (22-32); Chloride 101 mmol/L (98-107); Creatine Kinase 112 U/L (55-170); Estimated Glomerular Filt Rate > 60 mL/min (>60); Glucose 105 mg/dL (80-110); HEMOLYSIS < 15 (0-50); Potassium 2.8 mmol/L (3.4-5.1); Sodium 137 mmol/L (137-145)
[2023-06-28 06:27] LABS: NT-proBNP (BNP-Adult 18+) 2240 pg/mL (<125)
[2023-06-28 06:37] LABS: Troponin I 0.253 ng/mL (0.01-0.034)
--- NOTE | 2023-06-28 07:44 | PC.NURSE ---
0715 - this RNs first interaction with pt. Resting comfortably. In no apparent distress.
--- NOTE | 2023-06-28 09:43 | PC.NURSE ---
Physician sat down with pt to discuss plan of care via [employer]. 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 Pt would like to work more but business is slow since the pandemic. Pt lives paycheck to paycheck with a roommate. Pt worried he cannot afford the Emergency Room bill, much less the cost of being transferred to a higher level of care hospital. Physician explained he could apply for debt forgiveness and financial institution vice president. Physician advised pt that 'ability to pay' has no bearing on his care but pt stated he has no money and is worried about finances. Pt requested to leave against medical advice due to finances.
== END 2023-06-28 09:50 | disposition left against medical advice (07) ==
PROVIDERS: Emergency Medicine; Emergency Provider Emergency Medicine
DX: I50.9 Heart failure, unspecified (principal); I25.119 Atherosclerotic heart disease of native coronary artery with unspecified angina pectoris; R91.1 Solitary pulmonary nodule; R00.0 Tachycardia, unspecified; R07.9 Chest pain, unspecified; Z79.899 Other long term (current) drug therapy
CPT/HCPCS: 36415; 71045; 71275; 80048; 80053; 81003; 81015; 82550; 83605; 83880; 84484; 85025; 85379; 85610; 85730; 93005; 93010; 93306; 96365; 96366; 96375; 96376; 99284; J1644; J1940; Q9967